=== PATIENT | female | born 1955 | race Two or more races ===

== ENCOUNTER 2017-12-30 17:59 | Emergency (ER) | payer OTHER ==
[~2017-12-30] VITALS: Ht 157.5 cm; Wt 77.1 kg
[2017-12-30] MEDS ORDERED: NORVASC5 MG (18:20)
== END 2017-12-30 20:55 | disposition home or self-care (01) ==
LOC: ER 17:59
DX: M54.16 Radiculopathy, lumbar region (principal); M54.5 Low back pain

== ENCOUNTER → 2018-08-13 | Outpatient (CLI) | payer OTHER ==
[~2018-08-13] MED LIST: NORVASC5 MG
== END | disposition home or self-care (01) ==
LOC: RAD 08:13 → EDBD 08:13
DX: R06.02 Shortness of breath (principal)

== ENCOUNTER 2019-05-13 10:43 | Outpatient (CLI) | payer OTHER | END 2019-05-13 10:52 | disposition home or self-care (01) | LOC: MAMO-SONO 10:43 | DX: Z12.31 Encounter for screening mammogram for malignant neoplasm of breast (principal) ==

== ENCOUNTER 2019-12-22 12:14 | Emergency (ER) | payer OTHER ==
[~2019-12-22] VITALS: Ht 157.5 cm; Wt 77.1 kg
[2019-12-22] MEDS ORDERED: GLUMETZA500 MG PO (20:13)
== END 2019-12-22 21:41 | disposition home or self-care (01) ==
LOC: ER 12:14
DX: E11.65 Type 2 diabetes mellitus with hyperglycemia (principal); I16.0 Hypertensive urgency; I10 Essential (primary) hypertension; Z79.84 Long term (current) use of oral hypoglycemic drugs

== ENCOUNTER → 2020-01-04 | Outpatient (CLI) | payer OTHER ==
[~2020-01-04] MED LIST changes: +GLUMETZA500 MG PO
== END | disposition home or self-care (01) ==
LOC: SONOGRAMA 07:13 → MAMO-SONO 07:15
PROVIDERS: ATTEND Internal Medicine Endocrinology, Diabetes & Metabolism
DX: K76.0 Fatty (change of) liver, not elsewhere classified (principal); I11.0 Hypertensive heart disease with heart failure; R05 Cough; K76.1 Chronic passive congestion of liver; N18.2 Chronic kidney disease, stage 2 (mild); E10.65 Type 1 diabetes mellitus with hyperglycemia

== ENCOUNTER 2020-07-21 07:29 | Outpatient (CLI) | payer OTHER | END 2020-07-21 13:03 | disposition home or self-care (01) | LOC: NUCLEAR 07:29 | PROVIDERS: ATTEND Internal Medicine Cardiovascular Disease | DX: R07.89 Other chest pain (principal) | CPT/HCPCS: 78452; 93017; A9500; J0153 ==

== ENCOUNTER 2021-01-14 12:34 | Emergency (ER) | payer OTHER ==
[~2021-01-14] VITALS: Ht 157.5 cm; Wt 91.6 kg
== END 2021-01-14 20:16 | disposition home or self-care (01) ==
LOC: ER 12:34
DX: M25.472 Effusion, left ankle (principal); R60.0 Localized edema; M25.572 Pain in left ankle and joints of left foot

== ENCOUNTER → 2021-01-19 | Outpatient (CLI) | payer OTHER | END | disposition home or self-care (01) | LOC: NUCLEAR 10:06 | PROVIDERS: ATTEND General Practice | DX: R22.43 Localized swelling, mass and lump, lower limb, bilateral (principal); M25.572 Pain in left ankle and joints of left foot; M25.571 Pain in right ankle and joints of right foot; I73.9 Peripheral vascular disease, unspecified ==

== ENCOUNTER → 2021-01-22 | Outpatient (CLI) | payer OTHER | END | disposition home or self-care (01) | LOC: NUCLEAR 01-18 11:00 | PROVIDERS: ATTEND General Practice | DX: I87.2 Venous insufficiency (chronic) (peripheral) (principal); R22.43 Localized swelling, mass and lump, lower limb, bilateral; M25.579 Pain in unspecified ankle and joints of unspecified foot ==

== ENCOUNTER 2021-08-07 11:09 | Outpatient (CLI) | payer OTHER | END 2021-08-07 11:20 | disposition home or self-care (01) | LOC: MAMO-SONO 11:09 | DX: Z12.31 Encounter for screening mammogram for malignant neoplasm of breast (principal) ==

== ENCOUNTER 2021-11-12 09:12 | Outpatient (CLI) | payer OTHER | END 2021-11-12 09:13 | disposition home or self-care (01) | LOC: NUCLEAR 09:12 | PROVIDERS: ATTEND Internal Medicine Endocrinology, Diabetes & Metabolism | DX: M81.0 Age-related osteoporosis without current pathological fracture (principal); E11.9 Type 2 diabetes mellitus without complications; Z91.013 Allergy to seafood ==

== ENCOUNTER 2021-11-22 10:21 | Outpatient (CLI) | payer OTHER | END 2021-11-22 10:33 | disposition home or self-care (01) | LOC: RAD 10:21 | PROVIDERS: ATTEND Orthopaedic Surgery | DX: M25.561 Pain in right knee (principal); M25.562 Pain in left knee ==

== ENCOUNTER 2021-11-28 11:26 | Outpatient (CLI) | payer OTHER | END 2021-11-28 11:28 | disposition home or self-care (01) | LOC: MRI 11:26 | PROVIDERS: ATTEND Orthopaedic Surgery | DX: S83.202A Bucket-handle tear of unspecified meniscus, current injury, unspecified knee, initial encounter (principal) | CPT/HCPCS: 73721 ==

== ENCOUNTER → 2022-01-03 | Emergency (ER) | payer OTHER ==
[~2022-01-03] VITALS: Ht 157.5 cm; Wt 83.5 kg
== END | disposition home or self-care (01) ==
LOC: ER 12:57
DX: H66.91 Otitis media, unspecified, right ear (principal); R11.0 Nausea; R42 Dizziness and giddiness; Z91.018 Allergy to other foods

== ENCOUNTER 2023-05-13 08:58 | Emergency (ER) | payer OTHER ==
[~2023-05-13] VITALS: Ht 157.5 cm; Wt 78.9 kg
[2023-05-13] MEDS ORDERED: CRESTOR5 MG PO (09:18)
[2023-05-13] MEDS ORDERED: GLIPIZIDE XL5 MG PO (09:18)
[2023-05-13 11:42] LABS: HEMATOCRIT 36.6 % (36.0-45.00); HEMOGLOBIN 12.1 g/dL (12.0-15.00); MEAN CORPUSCULAR HEMOGLOBIN 29.5 pg (27.00-32.0); MEAN CORPUSCULAR HGB CONC 33.1 g/dl (32.0-36.0); PLATELET COUNT 178 K/uL (150-450); RED BLOOD COUNT 4.11 M/uL (4.00-6.00); RED CELL DISTRIBUTION WIDTH 17.3 % (11.5-14.5)
[2023-05-13 11:48] LABS: ERYTHROCYTE SEDIMENTATION RATE 62 mm/hr
[2023-05-13 12:08] LABS: PARTIAL THROMBOPLASTIN TIME 27.3 SECONDS (22.0-34.0)
[2023-05-13 12:09] LABS: D DIMER < 0.19 MG/L; INR 1.04; PROTHROMBIN TIME 10.9 SECONDS (9.0-11.5)
== END 2023-05-13 17:00 | disposition home or self-care (01) ==
LOC: ER 08:58
PROVIDERS: General Practice
DX: L03.90 Cellulitis, unspecified (principal); I10 Essential (primary) hypertension; E11.9 Type 2 diabetes mellitus without complications; Z79.84 Long term (current) use of oral hypoglycemic drugs; Z91.013 Allergy to seafood

== ENCOUNTER 2024-02-23 11:13 | Outpatient (CLI) | payer OTHER ==
[~2024-02-23 11:13] MED LIST changes: +CRESTOR5 MG PO; +GLIPIZIDE XL5 MG PO
== END 2024-02-23 11:14 | disposition home or self-care (01) ==
LOC: MAMO-SONO 11:13
PROVIDERS: ATTEND Specialist
DX: N64.4 Mastodynia (principal); N64.51 Induration of breast; R92.8 Other abnormal and inconclusive findings on diagnostic imaging of breast; Z12.31 Encounter for screening mammogram for malignant neoplasm of breast

== ENCOUNTER → 2024-02-23 12:16 | Outpatient (CLI) | payer OTHER | END | disposition home or self-care (01) | LOC: NUCLEAR 12:16 | DX: M81.0 Age-related osteoporosis without current pathological fracture (principal) ==